=== PATIENT | male | born 1970 | race Native Hawaiian/Other Pacific Islander ===

== ENCOUNTER 2018-11-16 06:16 | Emergency (ER) | payer OTHER ==
[2018-11-16 06:30] VITALS: BMI 29.2
--- NOTE | 2018-11-16 07:16 | ED PDOC ---
Arrival/HPI - General Historian: Patient - History of Present Illness Narrative History of Present Illness (Text): 11/16/18 07:13 Patient is a 48 yo male with HTN and T2DM who presents with dizziness s/p ingestion. 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 Shortly after, patient states that he started to feel "weird." Specifically, he reports feeling like he had slow reaction time. He felt uncomfortable driving on the highway. Upon standing, patient felt dizzy and had difficulty keeping his balance. He denies falling. He denies headache, vision change, chest pain, palpitations, abdominal pain, nausea, vomiting, or di arrhea. He states he is still feeling "dizzy and slow." He denies ever using drugs. He only drinks alcohol occasionally. Symptom Onset: Sudden Symptom Course: Improving <Maria Luisa Chapman - Last Filed: 11/16/18 08:06> <Dmitry Curran - Last Filed: 11/16/18 18:40> - General Chief Complaint: Substance Abuse Time Seen by Provider: 11/16/18 07:05 Past Medical History - Provider Review Nursing Documentation Reviewed: Yes - Past History Past History: Non-Contributing - Infectious Disease Hx of Infectious Diseases: None - Tetanus Immunization Tetanus Immunization: Unknown - Cardiac Hx Cardiac Disorders: Yes Hx Hypertension: Yes - Pulmonary Hx Respiratory Disorders: No - Neurological Hx Neurological Disorder: No - HEENT Hx HEENT Disorder: No - Renal Hx Renal Disorder: No - Endocrine/Metabolic Hx Endocrine Disorders: Yes Hx Diabetes Mellitus Type 1: Yes Hx Diabetes Mellitus Type 2: Yes - Hematological/Oncological Hx Blood Disorders: No - Integumentary Hx Dermatological Disorder: No - Musculoskeletal/Rheumatological Hx Musculoskeletal Disorders: No - Gastrointestinal Hx Gastrointestinal Disorders: Yes Hx Gall Bladder Disease: Yes (gallstone) - Genitourinary/Gynecological Hx Genitourinary Disorders: No - Psychiatric Hx Psychophysiologic Disorder: No Hx Substance Use: No - Anesthesia Hx Anesthesia Reactions: No <Maria Luisa Chapman - Last Filed: 11/16/18 08:06> Family/Social History - Physician Review Nursing Documentation Reviewed: Yes Family/Social History: Unknown Family HX Smoking Status: Never Smoked Hx Alcohol Use: Yes Frequency of alcohol use: Socially Hx Substance Use: No <Maria Luisa Chapman - Last Filed: 11/16/18 08:06> Allergies/Home Meds <Maria Luisa Chapman - Last Filed: 11/16/18 08:06> <Dmitry Curran - Last Filed: 11/16/18 18:40> Allergies/Adverse Reactions: Allergies No Known Allergies Allergy (Verified 11/16/18 06:30) Home Medications: Home Meds Medication Instructions Recorded Confirmed metFORMIN [glucOPHAGE] 500 mg PO DAILY 11/16/18 11/16/18 Review of Systems - Review of Systems Constitutional: absent: Fatigue, Fevers Eyes: absent: Vision Changes ENT: absent: Hearing Changes, Tinnitus Respiratory: absent: SOB, Cough Cardiovascular: absent: Chest Pain, Palpitations Gastrointestinal: absent: Abdominal Pain, Diarrhea, Nausea, Vomiting Genitourinary Male: Normal Musculoskeletal: Normal Skin: absent: Rash, Pruritis, Skin Lesions Neurological: Dizziness, Disequilibrium. absent: Headache, Focal Weakness, Speech Changes, Seizure Endocrine: absent: Diaphoresis Hemo/Lymphatic: absent: Adenopathy, Easy Bleeding, Easy Bruising Psychiatric: absent: Anxiety, Suicidal Ideation <Maria Luisa Chapman - Last Filed: 11/16/18 08:06> Physical Exam Vital Signs Reviewed: Yes Vital Signs Temp Pulse Resp BP Pulse Ox 11/16/18 06:30 98.3 F 100 H 18 165/110 H 100 Temperature: Afebrile Blood Pressure: Hypertensive Pulse: Tachycardic Respiratory Rate: Normal Appearance: Positive for: Non-Toxic, Comfortable Pain Distress: None Mental Status: Positive for: Alert and Oriented X 3, Lethargic (mild) - Systems Exam Head: Present: Atraumatic, Normocephalic Pupils: Present: PERRL Extroacular Muscles: Present: EOMI Conjunctiva: Present: Normal Mouth: Present: Moist Mucous Membranes Respiratory/Chest: Present: Clear to Auscultation, Good Air Exchange Cardiovascular: Present: Regular Rate and Rhythm, Normal S1, S2 Abdomen: No: Tenderness, Distention Lower Extremity: No: Edema Neurological: Present: GCS=15, CN II-XII Intact, Speech Normal Skin: Present: Warm, Dry, Normal Color Psychiatric: Present: Alert, Oriented x 3, Normal Insight, Normal Concentration <Maria Luisa Chapman - Last Filed: 11/16/18 08:06> Vital Signs Temp Pulse Resp BP Pulse Ox 11/16/18 06:30 98.3 F 100 H 18 165/110 H 100 <Dmitry Curran - Last Filed: 11/16/18 18:40> Medical Decision Making ED Course and Treatment: 11/16/18 07:19 UDS EKG 11/16/18 08:06 Patient states he is feeling a little better. Informed him of positive drug screen. Reassessment Condition: Re-examined, Improving,but remains with symptoms - Lab Interpretations I have reviewed the lab results: Yes Interpretation: Abnormal lab values (UDS- cannabinoids) - EKG Interpretation EKG Interpretation (Text): 11/16/18 07:30 NSR Interpreted by ED Physician: Yes Type: 12 lead EKG Comparison: Com.w/previous EKG - Medication Orders Current Medication Orders: Discontinued Medications Lorazepam (Ativan) 0.5 mg PO ONCE ONE; Protocol Stop: 11/16/18 07:12 Patient stated he was sleepy, so Ativan not given. <Maria Luisa Chapman - Last Filed: 11/16/18 08:06> ED Course and Treatment: 11/16/18 08:20 A 48 year old male presents to the emergency department with a complaint of dizziness. Patient ate a strange piece of chocolate given to him by a stranger. In agreement with resident note, which includes further HPI details. Patient was seen and evaluated with resident, came up with plan and treatment together. <Dmitry Curran - Last Filed: 11/16/18 18:40> - PA / IT BUSINESS PROCESS ARCHITECT / Resident Statement / has reviewed & agrees with the documentation as recorded. MD/ has examined the patient and agrees with the treatment plan. - Scribe Statement The provider has reviewed the documentation as recorded by the Minh Waldron Provider Scribe Attestation: All medical record entries made by the Minh were at my direction and personally dictated by me. I have reviewed the chart and agree that the record accurately reflects my personal performance of the history, physical exam, medical decision making, and the department course for this patient. I have also personally directed, reviewed, and agree with the discharge instructions and disposition. <Dmitry Curran - Last Filed: 11/16/18 18:40> Disposition/Present on Arrival - Present on Arrival Any Indicators Present on Arrival: No History of DVT/PE: No History of Uncontrolled Diabetes: No Urinary Catheter: No History of Decub. Ulcer: No History Surgical Site Infection Following: None - Disposition Have Diagnosis and Disposition been Completed?: Yes Disposition Time: 08:07 Patient Plan: Discharge <Maria Luisa Chapman - Last Filed: 11/16/18 08:06> <Dmitry Curran - Last Filed: 11/16/18 18:40> - Disposition Diagnosis: Marijuana intoxication Disposition: HOME/ ROUTINE Condition: STABLE Additional Instructions: Avoid driving for the rest of the day. Follow-up with your primary care physician. Continue taking home medications. Forms: [employer] ([place])
[2018-11-16 08:03] LABS: BARBITURATES, UR NEGATIVE (NEGATIVE); BENZODIAZEPINES, UR NEGATIVE (NEGATIVE); OPIATES, UR NEGATIVE (NEGATIVE); PHENCYCLIDINE, UR NEGATIVE (NEGATIVE)
[2018-11-16 08:27] VITALS: BP 139/87; PULSE 97; RESP 19; TEMP 98; O2SAT 99
--- NOTE | 2018-11-16 19:54 | CARD ---
APPROVED REPORT Date of service: 11/16/2018 EKG Measurement Heart [id number] <Conclusion> Normal sinus rhythm Normal ECG
== END 2018-11-16 08:16 | disposition home or self-care (01) ==
LOC: ED 06:16
DX: F12.929 Cannabis use, unspecified with intoxication, unspecified (principal); E11.9 Type 2 diabetes mellitus without complications; I10 Essential (primary) hypertension